=== PATIENT | female | born 1940 | race Caucasian/White ===

== ENCOUNTER 2022-06-08 06:33 | Day surgery (SDC) | payer MEDICARE ==
[2022-06-03 16:44] LABS: BASOPHILS % (AUTO) 0.8 % (0-1); EOSINOPHILS # (AUTO) 0.5 X10'3 (0-0.9); EOSINOPHILS % (AUTO) 8.1 % (0-6); LYMPHOCYTES # (AUTO) 1.4 X10'3 (1.1-4.8); LYMPHOCYTES % (AUTO) 25.4 % (21-51); MEAN CORPUSCULAR HEMOGLOBIN 32.5 PG (27.0-31.0); MEAN CORPUSCULAR HGB CONC 33.4 g/dL (33.0-36.5); MEAN CORPUSCULAR VOLUME 97.4 FL (78-98); MEAN PLATELET VOLUME 8.6 FL (7.4-10.4); MONOCYTES # (AUTO) 0.4 X10'3 (0-0.9); MONOCYTES % (AUTO) 7.9 % (2-12); NEUTROPHILS # (AUTO) 3.2 X10'3 (1.8-7.7); NEUTROPHILS % (AUTO) 57.8 % (42-75); PRE OP HEMATOCRIT 36.1 % (35.0-45.0); PRE OP PLATELET COUNT 280 X10'3 (140-440); RED CELL DISTRIBUTION WIDTH 13.5 % (11.5-14.5)
[2022-06-03 16:52] LABS: ALBUMIN 4.5 G/DL (3.4-5.0); ALBUMIN/GLOBULIN RATIO 1.5 (1.1-1.5); ALKALINE PHOSPHATASE 131 IU/L (46-116); BLOOD UREA NITROGEN 14 MG/DL (7-18); BUN/CREATININE RATIO 15.6 (6.6-38.0); CALCIUM 10.7 MG/DL (8.5-10.1); CHLORIDE 101 MMOL/L (99-107); PRE OP ALT 30 U/L (30-65); PRE OP ANION GAP 7 (8-16); PRE OP AST 24 U/L (10-37); PRE OP BILIRUB, TOTAL 0.7 MG/DL (0.0-1.0); PRE OP GLUCOSE 104 MG/DL (70-104); PRE OP POTASSIUM 3.6 MMOL/L (3.4-5.1); PRE OP SODIUM 139 MMOL/L (135-145); TOTAL CARBON DIOXIDE 30.8 MMOL/L (24-32); TOTAL PROTEIN 7.6 G/DL (6.4-8.2); eGFR 60 ML/MIN
[2022-06-08] VITALS (8 sets, daily range): BP systolic 121–147; BP diastolic 56–90
[~2022-06-08] VITALS: Ht 165.1 cm; Wt 74.8 kg
[~2022-06-08 06:33] MED LIST: AMLO5TAB PO; BUPIVAcaine 0.5% inj/PF 30 ML ONE; DOCUMENT DATE & TIME OF BETA-BLOCKER PO ONE; METO-384 PO; ROSU20TA31 PO; ceFAZolin inj. 2,000 MG in dextrose 5%-water 100 ML IV ONE; famotidine 20mg tablet PO ONE; ringers solution, lacted 1,000 ML IV SCH
[2022-06-08] MEDS ORDERED: acetaminophen 1,000mg/100ml IV 100 ML IV PRN (08:05)
[2022-06-08] MEDS ORDERED: hydrALAZINE 20mg/ml inj. IV PRN (08:05)
[2022-06-08] MEDS ORDERED: ringers solution, lacted 1,000 ML IV SCH (08:05)
[2022-06-08] MEDS ORDERED: ketorolac tromethamine 15mg/ml inj. IV ONE (08:05)
[2022-06-08] MEDS ORDERED: morphine 4 MG/ML inj SYRINge IV PRN (08:05)
[2022-06-08] MEDS ORDERED: ondansetron/PF 4mg/2ml inj IV PRN (08:05)
[2022-06-08] MEDS ORDERED: labetalol 20mg/4ml (5mg/ml) syringe IV PRN (08:05)
[2022-06-08] MEDS ORDERED: meperidine/PF 25mg/ml syringe IV PRN ×3 (08:05)
[2022-06-08] MEDS ORDERED: morphine 2 MG/ML inj. syringe IV PRN (08:05)
[2022-06-08] MEDS ORDERED: proCHLORperazine 10 MG/2 ml inj IV PRN (08:05)
[2022-06-08] MEDS ORDERED: fentaNYL/PF 50MCG/1 ML 2ML syringe ONE (09:07)
[2022-06-08] MEDS ORDERED: midazolam 1 mg/ML 2ml injection ONE (09:08)
[2022-06-08] MEDS ORDERED: LIDOcaine 0.5% (5mg/ml) 50ml vial ONE (09:15)
[2022-06-08] MEDS ORDERED: propofol inj 20 ML IV ONE (09:15)
[2022-06-08] MEDS ORDERED: BUPIVAcaine/PF 5 mg/ml 10ml IJ ONE (09:21)
--- NOTE | 2022-06-08 09:34 | NUR ---
Received from OR via [facility], accompanied by Anesthesiologist and report given by [facility] Anesthesiologist. PATIENT WAKING UP, DENIES PAIN, V/S WNL, PIV 20G TO LUE, RIGHT WRIST DRESSING CDI. ICE AND ELEVATED RUE. Addendum: 06/08/22 at 0945 by Kike Archer RN Amended: Links added.
--- NOTE | 2022-06-08 10:24 | NUR ---
ALL DISCHARGE CRITERIA HAS BEEN MET. VSS, PAIN AT A TOLERABLE LEVEL, ABLE TO SAFELY AMBULATE AND TRANSFER SELF. IV TAKEN OUT WITHOUT ANY COMPLICATIONS. ALL DISCHARGE INSTRUCTIONS COVERED WITH PATIENT AND ALL QUESTIONS ANSWERED. PATIENT TAKEN OUT VIA WHEELCHAIR WITH ALL BELONGINGS TO PERSONAL VEHICLE WHERE FAMILY DROVE PATIENT HOME. Addendum: 06/08/22 at 1031 by Kike Archer RN Amended: Links added.
== END 2022-06-08 10:24 | disposition home or self-care (01) ==
LOC: PAS 06:33
PROVIDERS: ATTEND Orthopaedic Surgery Hand Surgery
DX: G56.01 Carpal tunnel syndrome, right upper limb (principal); M65.311 Trigger thumb, right thumb; F41.9 Anxiety disorder, unspecified; I10 Essential (primary) hypertension; I48.91 Unspecified atrial fibrillation; G89.29 Other chronic pain; Z79.899 Other long term (current) drug therapy; Z88.0 Allergy status to penicillin; Z88.2 Allergy status to sulfonamides; Z98.890 Other specified postprocedural states; Z90.710 Acquired absence of both cervix and uterus; Z72.89 Other problems related to lifestyle; Z87.891 Personal history of nicotine dependence; Z86.73 Personal history of transient ischemic attack (TIA), and cerebral infarction without residual deficits
CPT/HCPCS: 26055; 36415; 64721; 80053; 82948; 85025; 93005; J0690; J2250; J2704; J3010; J3490; J7030; J7060; J7120; S0020; Z7506; Z7512; A4215

== ENCOUNTER 2023-05-31 06:04 | Day surgery (SDC) | payer MEDICARE ==
[2023-05-28 10:23] LABS: BASOPHILS # (AUTO) 0.1 X10'3 (0-0.2); BASOPHILS % (AUTO) 1.4 % (0-1); EOSINOPHILS # (AUTO) 0.4 X10'3 (0-0.9); EOSINOPHILS % (AUTO) 10.2 % (0-6); HEMATOCRIT 35.1 % (35.0-45.0); HEMOGLOBIN 11.9 g/dl (12.0-16.0); LYMPHOCYTES # (AUTO) 1.2 X10'3 (1.1-4.8); LYMPHOCYTES % (AUTO) 28.2 % (21-51); MEAN CORPUSCULAR HEMOGLOBIN 32.8 PG (27.0-31.0); MEAN CORPUSCULAR HGB CONC 33.9 g/dL (33.0-36.5); MEAN CORPUSCULAR VOLUME 96.7 FL (78-98); MEAN PLATELET VOLUME 8.3 FL (7.4-10.4); MONOCYTES # (AUTO) 0.3 X10'3 (0-0.9); MONOCYTES % (AUTO) 7.8 % (2-12); NEUTROPHILS # (AUTO) 2.2 X10'3 (1.8-7.7); NEUTROPHILS % (AUTO) 52.4 % (42-75); PLATELET COUNT 319 X10'3 (140-440); RED BLOOD COUNT 3.63 X10'6 (4.20-5.60); WHITE BLOOD COUNT 4.2 X10'3 (4.5-11.0)
[2023-05-28 10:46] LABS: APTT 30 SECONDS (22-32); PROTHROMBIN TIME 10.7 SECONDS (9.0-12.0)
[2023-05-28 10:55] LABS: ALBUMIN 3.9 G/DL (3.4-5.0); ANION GAP 8 (8-16); CALCIUM 11.4 MG/DL (8.5-10.1); CHLORIDE 105 MMOL/L (99-107); CREATININE 0.89 MG/DL (0.40-0.90); GLUCOSE 102 MG/DL (70-104); SODIUM 142 MMOL/L (135-145); TOTAL CARBON DIOXIDE 28.7 MMOL/L (24-32); eGFR 61 ML/MIN
[2023-05-28 10:58] LABS: BLOOD UREA NITROGEN 14 MG/DL (7-18); BUN/CREATININE RATIO 15.7 (10.0-20.0)
[2023-05-31] VITALS (14 sets, daily range): BP systolic 101–142; BP diastolic 51–74; PULSE 58–64; RESP 14–16; TEMP 98.4; O2SAT 92–96
[~2023-05-31] VITALS: Ht 162.6 cm; Wt 74.5 kg
[~2023-05-31 06:04] MED LIST changes: -BUPIVAcaine 0.5% inj/PF 30 ML ONE; -DOCUMENT DATE & TIME OF BETA-BLOCKER PO ONE; -ROSU20TA31 PO; +ROSU20TA73 PO; -ceFAZolin inj. 2,000 MG in dextrose 5%-water 100 ML IV ONE; -famotidine 20mg tablet PO ONE; -ringers solution, lacted 1,000 ML IV SCH
[2023-05-31] MEDS ORDERED: WARF3TAB56 PO (06:30)
[2023-05-31] MEDS ORDERED: ASPI81TA52 PO (06:30)
[2023-05-31] MEDS ORDERED: OMEP20CA16 PO (06:30)
[2023-05-31] MEDS ORDERED: clindamycin-Cleocin 900mg/D5W 50 ML IV ONE (06:55)
[2023-05-31] MEDS ORDERED: midazolam 1 mg/ML 2ml injection ONE ×2 (07:15→09:29)
[2023-05-31] MEDS ORDERED: ceFAZolin 1000mg inj ONE (07:15)
[2023-05-31] MEDS ORDERED: LIDOcaine 1% W/epiNEPHrine 1:100,000 20ml vial ONE ×2 (07:15→09:36)
[2023-05-31] MEDS ORDERED: fentaNYL/PF 50MCG/1 ML 2ML syringe ONE (07:15)
[2023-05-31] MEDS ORDERED: normal saline 1000ml 1,000 ML IV SCH (07:20)
[2023-05-31] MEDS ORDERED: vancomycin 1,000mg inj ONE (07:26)
[2023-05-31] MEDS ORDERED: diphenhydrAMINE 50 mg/ml inj ONE (08:46)
[2023-05-31] MEDS ORDERED: vancomycin/NS 1 GM ADD-VANTAGE 250 ML X 1 DOSE IV ONE (10:35)
== END 2023-05-31 16:00 | disposition home or self-care (01) ==
LOC: SSTAY O 06:04
PROVIDERS: ATTEND Internal Medicine Cardiovascular Disease
DX: I49.5 Sick sinus syndrome (principal); I10 Essential (primary) hypertension; E78.5 Hyperlipidemia, unspecified; K21.9 Gastro-esophageal reflux disease without esophagitis; M19.90 Unspecified osteoarthritis, unspecified site; M85.80 Other specified disorders of bone density and structure, unspecified site; M47.816 Spondylosis without myelopathy or radiculopathy, lumbar region; Z90.710 Acquired absence of both cervix and uterus; Z79.82 Long term (current) use of aspirin; Z79.899 Other long term (current) drug therapy; Z79.01 Long term (current) use of anticoagulants; Z86.73 Personal history of transient ischemic attack (TIA), and cerebral infarction without residual deficits; Z98.890 Other specified postprocedural states; Z98.41 Cataract extraction status, right eye; Z98.42 Cataract extraction status, left eye; Z90.49 Acquired absence of other specified parts of digestive tract; Z88.0 Allergy status to penicillin; Z88.2 Allergy status to sulfonamides; F17.211 Nicotine dependence, cigarettes, in remission; Z80.0 Family history of malignant neoplasm of digestive organs
CPT/HCPCS: 33208; 33286; 36415; 71046; 80048; 85025; 85610; 85730; 93005; 99152; 99153; A6258; C1785; C1898; J1200; J2250; J3010; J3370; J3490; J7030; A4565; A6449; C1764; J0690